=== PATIENT | female | born 1955 | race Hispanic/Latino ===

== ENCOUNTER 2018-07-20 19:42 | Emergency (ER) | payer SELFPAY ==
--- NOTE | 2018-07-20 20:58 | ER ---
Nurse's Notes [facility] Name: Dayana Brooks Age: 62 yrs Sex: Female : 1955 Arrival Date: 07/20/2018 Time: 19:46 Bed 28 Private MD: Diagnosis: Pain in right knee Presentation: 07/20 19:52 Presenting complaint: Patient states: Right knee pain for 2 months. Denies trauma. Seen aj by PCP in [place] and told she had no cartilage left, given Diclofenac. Transition of care: patient was not received from another setting of care. Onset of symptoms was April 2018. Risk Assessment: Do you want to hurt yourself or someone else? Patient reports no desire to harm self or others. Initial Sepsis Screen: Does the patient meet any 2 criteria? No. Patient's initial sepsis screen is negative. Does the patient have a suspected source of infection? No. Patient's initial sepsis screen is negative. Care prior to arrival: None. 19:52 Method Of Arrival: Wheelchair aj 19:52 Acuity: ADRIANA 4 aj Triage Assessment: 19:54 General: Appears in no apparent distress. comfortable, Behavior is calm, cooperative, aj appropriate for age. Pain: Complains of pain in right knee. Neuro: Level of Consciousness is awake, alert, obeys commands, Oriented to person, place, time, situation, Appropriate for age. Respiratory: Airway is patent Respiratory effort is even, unlabored, Respiratory pattern is regular, symmetrical. Derm: Skin is intact, is healthy with good turgor, Skin is pink, warm \T\ dry. normal. Musculoskeletal: Reports pain in right knee. Historical: - Allergies: 19:54 No Known Allergies; aj - Home Meds: 19:54 diclofenac oral oral [Active]; Glyburide Oral [Active]; Captopril Oral [Active]; aj pravastatin oral oral [Active]; - PMHx: 19:54 Diabetes - NIDDM; Hypertension; Hyperlipidemia; aj - PSHx: 19:54 None; aj - Immunization history:: Adult Immunizations up to date. - Social history:: Smoking status: Patient/guardian denies using tobacco. - Ebola Screening: : Patient negative for fever greater than or equal to 101.5 degrees Fahrenheit, and additional compatible Ebola Virus Disease symptoms Patient denies exposure to infectious person Patient denies travel to an Ebola-affected area in the 21 days before illness onset No symptoms or risks identified at this time. Screenin:43 Abuse screen: Denies threats or abuse. Denies injuries from another. Nutritional mg2 screening: No deficits noted. Tuberculosis screening: No symptoms or risk factors identified. Fall Risk Ambulatory Aid- None/Bed Rest/Nurse Assist (0 pts). Assessment: 21:38 General: Appears uncomfortable, Behavior is cooperative, crying. Pain: Complains of mg2 pain in right leg and right knee. Neuro: Level of Consciousness is awake, alert, obeys commands, Oriented to person, place, time, situation. Cardiovascular: Capillary refill < 3 seconds Patient's skin is warm and dry. Respiratory: No deficits noted. GI: No signs and/or symptoms were reported involving the gastrointestinal system. : No deficits noted. EENT: No signs and/or symptoms were reported regarding the EENT system. Derm: Skin is intact, Skin is pink, warm \T\ dry. normal. Musculoskeletal: Circulation, motion, and sensation intact. Swelling present in right knee. Vital Signs: 19:54 BP 162 / 67; Pulse 79; Resp 16; Temp 98.3; Pulse Ox 97% on R/A; Weight 64.41 kg; Height aj 5 ft. 0 in. (152.40 cm); 21:41 BP 158 / 80; Pulse 89; Resp 18; Pulse Ox 100% on R/A; Pain 6/10; mg2 19:54 Body Mass Index 27.73 (64.41 kg, 152.40 cm) aj ED Course: 19:46 Patient arrived in ED. ds1 19:53 Triage completed. aj 19:54 Arm band placed on left wrist. Patient placed in waiting room, Patient notified of wait aj time. 20:24 [facility]C [facility] snw 20:24 Samm Mars MD is Attending Physician. snw 20:43 Henrry Childs, DANIELLE is Primary Nurse. mg2 20:43 Patient has correct armband on for positive identification. Side rails up X 1. Door mg2 closed. 20:55 Knee Right 3 View XRAY In Process Unspecified. EDMS 20:57 Eddie Bolanos MD is Referral Physician. snw 21:39 No provider procedures requiring assistance completed. Patient did not have IV access mg2 during this emergency room visit. Knee immobilizer applied on right knee. Administered Medications: 21:20 Drug: fentaNYL (PF) 50 mcg Route: IM; Site: left gluteus; mg2 21:40 Follow up: Response: No adverse reaction; Medication administered at discharge. mg2 Outcome: 20:58 Discharge ordered by MD. damon 21:41 Discharged to home via wheelchair, with family. mg2 21:41 Condition: good 21:41 Discharge instructions given to patient, family, Instructed on discharge instructions, follow up and referral plans. medication usage, Demonstrated understanding of instructions, follow-up care, medications, Prescriptions given X 1. 21:42 Patient left the ED. mg2 Signatures: Dispatcher [employer] EDNatalia Marie, RN RN Korin Parker, GUIDE SETTER-C GUIDE SETTER-Mone Ann ds1 Henrry Chilsd RN RN mg2
--- NOTE | 2018-07-20 20:58 | EDPHYS ---
Physician Documentation [facility] Name: Dayana Brooks Age: 62 yrs Sex: Female : 1955 Arrival Date: 07/20/2018 Time: 19:46 Bed 28 Private MD: ED Physician Samm Mars HPI: 07/20 20:55 This 62 yrs old Female presents to ER via Wheelchair with complaints of Knee snw Pain. 20:55 Onset: The symptoms/episode began/occurred gradually, and became worse just prior to snw arrival, and became persistent. The patient has experienced similar episodes in the past. The patient has been recently seen by a physician: in [place]. Rx diclofenac, told knee was bone on bone. Pt drove in from [place] today. Upon walking post arriving home pt could not tolerate the pain. Historical: - Allergies: 19:54 No Known Allergies; aj - Home Meds: 19:54 diclofenac oral oral [Active]; Glyburide Oral [Active]; Captopril Oral [Active]; aj pravastatin oral oral [Active]; - PMHx: 19:54 Diabetes - NIDDM; Hypertension; Hyperlipidemia; aj - PSHx: 19:54 None; aj - Immunization history:: Adult Immunizations up to date. - Social history:: Smoking status: Patient/guardian denies using tobacco. - Ebola Screening: : Patient negative for fever greater than or equal to 101.5 degrees Fahrenheit, and additional compatible Ebola Virus Disease symptoms Patient denies exposure to infectious person Patient denies travel to an Ebola-affected area in the 21 days before illness onset No symptoms or risks identified at this time. ROS: 20:55 Constitutional: Negative for fever, chills, and weight loss, Eyes: Negative for injury, snw pain, redness, and discharge, ENT: Negative for injury, pain, and discharge, Neck: Negative for injury, pain, and swelling, Cardiovascular: Negative for chest pain, palpitations, and edema, Respiratory: Negative for shortness of breath, cough, wheezing, and pleuritic chest pain, Abdomen/GI: Negative for abdominal pain, nausea, vomiting, diarrhea, and constipation, Back: Negative for injury and pain, : Negative for injury, bleeding, discharge, and swelling, Skin: Negative for injury, rash, and discoloration, Neuro: Negative for headache, weakness, numbness, tingling, and seizure. 20:55 MS/extremity: Positive for decreased range of motion, pain, of the right knee. Exam: 20:54 Head/Face: Normocephalic, atraumatic. Eyes: Pupils equal round and reactive to light, snw extra-ocular motions intact. Lids and lashes normal. Conjunctiva and sclera are non-icteric and not injected. Cornea within normal limits. Periorbital areas with no swelling, redness, or edema. ENT: Nares patent. No nasal discharge, no septal abnormalities noted. Tympanic membranes are normal and external auditory canals are clear. Oropharynx with no redness, swelling, or masses, exudates, or evidence of obstruction, uvula midline. Mucous membranes moist. Neck: Trachea midline, no thyromegaly or masses palpated, and no cervical lymphadenopathy. Supple, full range of motion without nuchal rigidity, or vertebral point tenderness. No Meningismus. Chest/axilla: Normal chest wall appearance and motion. Nontender with no deformity. No lesions are appreciated. Cardiovascular: Regular rate and rhythm with a normal S1 and S2. No gallops, murmurs, or rubs. Normal PMI, no JVD. No pulse deficits. Respiratory: Lungs have equal breath sounds bilaterally, clear to auscultation and percussion. No rales, rhonchi or wheezes noted. No increased work of breathing, no retractions or nasal flaring. Abdomen/GI: Soft, non-tender, with normal bowel sounds. No distension or tympany. No guarding or rebound. No evidence of tenderness throughout. Back: No spinal tenderness. No costovertebral tenderness. Full range of motion. Skin: Warm, dry with normal turgor. Normal color with no rashes, no lesions, and no evidence of cellulitis. Neuro: Awake and alert, GCS 15, oriented to person, place, time, and situation. Cranial nerves II-XII grossly intact. Motor strength 5/5 in all extremities. Sensory grossly intact. Cerebellar exam normal. Normal gait. Psych: Awake, alert, with orientation to person, place and time. Behavior, mood, and affect are within normal limits. 20:54 Constitutional: The patient appears alert, anxious, restless, uncomfortable. 20:54 Musculoskeletal/extremity: Extremities: grossly normal except: noted in the right knee: decreased ROM, pain, ROM: limited active range of motion due to pain, limited passive range of motion due to pain, Circulation is intact in all extremities. Sensation intact. Compartment Syndrome exam of affected extremity: is normal. Vital Signs: 19:54 BP 162 / 67; Pulse 79; Resp 16; Temp 98.3; Pulse Ox 97% on R/A; Weight 64.41 kg; Height aj 5 ft. 0 in. (152.40 cm); 21:41 BP 158 / 80; Pulse 89; Resp 18; Pulse Ox 100% on R/A; Pain 6/10; mg2 19:54 Body Mass Index 27.73 (64.41 kg, 152.40 cm) aj MDM: 20:28 Patient medically screened. snw 20:59 Data reviewed: vital signs, nurses notes. Data interpreted: Pulse oximetry: on room air snw is 97 %. Interpretation: normal. Counseling: I had a detailed discussion with the patient and/or guardian regarding: the historical points, exam findings, and any diagnostic results supporting the discharge/admit diagnosis, radiology results, the need for outpatient follow up, to return to the emergency department if symptoms worsen or persist or if there are any questions or concerns that arise at home. Special discussion: I have referred the patient to see his PCP for further evaluation of high blood pressure. Based on the history and exam findings, there is no indication for further emergent testing or inpatient evaluation. I discussed with the patient/guardian the need to see the orthopedic surgeon for further evaluation of the symptoms. I discussed with the patient/guardian the need to see the primary care provider for further evaluation of the symptoms. 07/20 19:55 Order name: Knee Right 3 View XRAY; Complete Time: 21:21 07/20 20:54 Order name: Knee Immobilizer; Complete Time: 21:37 snw Administered Medications: 21:20 Drug: fentaNYL (PF) 50 mcg Route: IM; Site: left gluteus; mg2 21:40 Follow up: Response: No adverse reaction; Medication administered at discharge. mg2 Disposition: 07/21 06:50 Co-signature as Attending Physician, Samm Mars MD I agree with the assessment and ps1 plan of care. Disposition: 07/20/18 20:58 Discharged to Home. Impression: Pain in right knee. - Condition is Stable. - Discharge Instructions: Joint Pain, Cast or Splint Care, Adult, How to Use a Knee Brace, Musculoskeletal Pain, Knee Pain. - Prescriptions for orphenadrine citrate 100 mg Oral Tablet Sustained Release - take 1 tablet by ORAL route 2 times per day As needed; 20 tablet. - Medication Reconciliation Form, Thank You Letter, Antibiotic Education, Prescription Opioid Use form. - Follow up: Private Physician; When: As needed; Reason: Recheck today's complaints, Re-evaluation by your physician. Follow up: Eddie Bolanos MD; When: 2 - 3 days; Reason: Recheck today's complaints, Continuance of care. - Notes: please continue diclofenac Signatures: Dispatcher [employer] EDNatalia Marie, RN RN Korin Parker, DIETITIAN RESEARCH-C DIETITIAN RESEARCH-Csnw Samm Mars MD MD ps1 Gardose, Michele RN RN mg2 Corrections: (The following items were deleted from the chart) 07/20 21:42 20:58 07/20/2018 20:58 Discharged to Home. Impression: Pain in right knee. Condition is mg2 Stable. Forms are Medication Reconciliation Form, Thank You Letter, Antibiotic Education, Prescription Opioid Use. Follow up: Private Physician; When: As needed; Reason: Recheck today's complaints, Re-evaluation by your physician. Follow up: Dr. Eddie Bolanos; When: 2 - 3 days; Reason: Recheck today's complaints, Continuance of care. snw
[2018-07-20] MEDS ORDERED: FENTANYL CITR 100 MCG/2 ML ONE (21:09)
--- NOTE | 2018-07-20 21:20 | RAD REPORT ---
EXAM DESCRIPTION: RAD - Knee Right 3 View - 07/20/2018 8:55 pm CLINICAL HISTORY: Nontraumatic knee pain COMPARISON: None. FINDINGS: No fracture, dislocation or periosteal reaction.Trace amount of joint fluid is present. Pa tient has mild narrowing of the medial compartment. Small medial compartment marginal spurs are prese nt. There is spurring along the tibial spine. No foreign body or other soft tissue abnormality. Madden la marginal spurring noted. IMPRESSION: Degenerative knee changes as detailed. No acute bone or joint finding. Clinical concerns for internal derangement or occult bony injury could be further assessed with MR im aging.
== END 2018-07-20 21:42 | disposition home or self-care (01) ==
LOC: ER 19:42
DX: M25.561 Pain in right knee (principal); E11.9 Type 2 diabetes mellitus without complications; Z79.84 Long term (current) use of oral hypoglycemic drugs; I10 Essential (primary) hypertension; E78.5 Hyperlipidemia, unspecified
CPT/HCPCS: 96372; 99284; J3010

== ENCOUNTER 2021-10-05 22:05 | Emergency (ER) | payer OTHER, SELFPAY ==
[2021-10-05 23:14] LABS: Absolute Lymphocytes (CBC) 1.7 K/uL (0.7-4.9); Basophils % 0.6 % (0-1.3); Hematocrit 42.7 % (36.0-45.0); Lymphocytes % 27.9 % (15.3-44.8); MPV 8.8 fL (7.6-11.3); RBC Red Blood Cell Count 4.89 M/uL (3.86-4.86)
[2021-10-05 23:17] LABS: Protime INR 0.93
[2021-10-05 23:40] LABS: ALT/SGPT 43 U/L (12-78); AST/SGOT 25 U/L (15-37); Albumin 4.3 g/dL (3.4-5.0); Alkaline Phosphatase 109 U/L (45-117); BUN Blood Urea Nitrogen 15 mg/dL (7-18); Bicarbonate 28 mmol/L (21-32); Bilirubin Direct < 0.1 mg/dL (0-0.2); Bilirubin Total 0.2 mg/dL (0.2-1.0); Glucose Level 179 mg/dL (74-106); Magnesium 2.4 mg/dL (1.8-2.4); Potassium 4.3 mmol/L (3.5-5.1); Protein, Total 8.7 g/dL (6.4-8.2); Sodium Level 143 mmol/L (136-145); Troponin (Emerg Dept Use Only) 0.03 ng/mL (0.0-0.045)
[2021-10-06 00:23] LABS: Urine Blood Negative (Negative); Urine Glucose Negative (Negative); Urine Protein Negative (Negative)
--- NOTE | 2021-10-06 00:39 | EDPHYS ---
Physician Documentation [facility] Name: Dayana Brooks Age: 66 yrs Sex: Female : 1955 Arrival Date: 10/05/2021 Time: 22:21 Bed 11 Private MD: ED Physician Kp Ng HPI: 10/05 22:45 This 66 yrs old Female presents to ER via EMS with complaints of High Blood cp Pressure. 22:45 The patient has elevated blood pressure and discovered this at home, with a home device.cp 22:45 Onset: The symptoms/episode began/occurred today. Associated signs and symptoms: cp Pertinent positives: headache. Historical: - Home Meds: 22:00 Captopril Oral [Active]; pravastatin Oral [Active]; Glyburide Oral [Active]; mr2 - PMHx: 22:00 Diabetes - NIDDM; Hyperlipidemia; Hypertension; mr2 - Immunization history:: Adult Immunizations up to date. - Social history:: Smoking status: Patient denies any tobacco usage or history of. ROS: 22:50 Constitutional: Negative for body aches, chills, fever, poor PO intake. cp 22:50 Eyes: Negative for injury, pain, redness, and discharge. cp 22:50 Cardiovascular: Negative for chest pain, edema, palpitations. 22:50 Respiratory: Negative for cough, shortness of breath, wheezing. 22:50 Abdomen/GI: Negative for abdominal pain, nausea, vomiting, and diarrhea. 22:50 : Negative for urinary symptoms. 22:50 Neuro: Positive for headache, Negative for altered mental status, dizziness, loss of consciousness, syncope, weakness. Exam: 22:55 Constitutional: The patient appears in no acute distress, alert, awake, cp non-diaphoretic, non-toxic, well developed, well nourished, obese. 22:55 Head/Face: Normocephalic, atraumatic. cp 22:55 Eyes: Periorbital structures: appear normal, Pupils: equal, round, and reactive to light and accomodation, Extraocular movements: intact throughout, Conjunctiva: normal, no exudate, no injection, Sclera: no appreciated abnormality, Lids and lashes: appear normal, bilaterally. 22:55 ENT: External ear(s): are unremarkable, Nose: is normal, Mouth: Lips: moist, Oral mucosa: moist, Posterior pharynx: Airway: no evidence of obstruction, patent. 22:55 Neck: ROM/movement: is normal, is supple, without pain, no range of motions limitations, no nuchal rigidity. 22:55 Chest/axilla: Inspection: normal. 22:55 Cardiovascular: Rate: normal, Rhythm: regular, Edema: is not appreciated, JVD: is not appreciated. 22:55 Respiratory: the patient does not display signs of respiratory distress, Respirations: normal, no use of accessory muscles, no retractions, labored breathing, is not present, Breath sounds: are clear throughout, no decreased breath sounds, no stridor, no wheezing. 22:55 Abdomen/GI: Exam negative for discomfort, distension, guarding, Inspection: abdomen appears normal. 22:55 Back: pain, is absent, ROM is normal. 22:55 Neuro: Orientation: to person, place \T\ time. Mentation: is normal, Motor: moves all fours, strength is normal, Sensation: is normal. 23:37 ECG was reviewed by the Attending Physician. cp Vital Signs: 22:30 BP 182 / 96; Pulse 94; Resp 18; Temp 98.5; Pulse Ox 97% on R/A; Weight 74.84 kg; Height mr2 5 ft. 0 in. (152.40 cm); Pain 3/10; 10/06 00:15 BP 149 / 88; Pulse 88; Resp 18; Temp 98.4; Pulse Ox 98% on R/A; mr2 00:46 BP 138 / 84; Pulse 87; Resp 17; Temp 98.5; Pulse Ox 98% on R/A; mr2 10/05 22:30 Body Mass Index 32.22 (74.84 kg, 152.40 cm) mr2 MDM: 10/05 22:37 Patient medically screened. [facility] 10/06 00:39 Data reviewed: vital signs, nurses notes, lab test result(s), EKG, radiologic studies, cp CT scan, plain films. 00:39 Test interpretation: by ED physician or midlevel provider: ECG, plain radiologic cp studies. Counseling: I had a detailed discussion with the patient and/or guardian regarding: the historical points, exam findings, and any diagnostic results supporting the discharge/admit diagnosis, the presence of at least one elevated blood pressure reading (>120/80) during this emergency department visit, lab results, radiology results, the need for outpatient follow up, a family practitioner, an assistant program manager, to return to the emergency department if symptoms worsen or persist or if there are any questions or concerns that arise at home. Response to treatment: the patient's symptoms have markedly improved after treatment, Headache resolved and blood pressure markedly improved. Will discharge to home for continued monitoring. 10/05 22:44 Order name: Basic Metabolic Panel; Complete Time: 23:52 cp 10/05 22:44 Order name: CBC with Diff; Complete Time: 23:52 cp 10/05 22:44 Order name: LFT's; Complete Time: 23:52 cp 10/05 22:44 Order name: Magnesium; Complete Time: 23:52 cp 10/05 22:44 Order name: PT-INR; Complete Time: 23:52 cp 10/05 22:44 Order name: Troponin (emerg Dept Use Only); Complete Time: 23:52 cp 10/05 22:44 Order name: XRAY Chest (1 view) 10/05 22:44 Order name: EKG; Complete Time: 22:45 cp 10/05 22:44 Order name: CT Head Brain wo Cont cp 10/05 23:57 Order name: Urine Microscopic Only cp 10/06 00:22 Order name: Urine Dipstick-Ancillary; Complete Time: 00:39 EDMS 10/06 00:46 Order name: Urine Culture [facility] 10/05 22:44 Order name: Cardiac monitoring; Complete Time: 23:33 cp 10/05 22:44 Order name: EKG - Nurse/Tech; Complete Time: 23:33 cp 10/05 22:44 Order name: IV Saline Lock; Complete Time: 23:33 cp 10/05 22:44 Order name: Labs collected and sent; Complete Time: 23:33 cp 10/05 22:44 Order name: O2 Per Protocol; Complete Time: 23:33 cp 10/05 22:44 Order name: O2 Sat Monitoring; Complete Time: 23:33 cp 10/05 23:57 Order name: Urine Dipstick-Ancillary (obtain specimen); Complete Time: 00:26 cp EC/04 23:37 Rate is 81 beats/min. Rhythm is regular. MS interval is normal. QRS interval is normal. cp QT interval is normal. T waves are Inverted in leads I, aVL, V6. Interpreted by me. Reviewed by me. Administered Medications: 00:15 Drug: NS 0.9% 500 ml Route: IV; Rate: bolus; Site: left antecubital; mr2 10/06 00:41 Not Given (Hemodynamic Parameters): cloNIDine 0.1 mg PO once mr2 Disposition: 11:23 Co-signature as Attending Physician, Kp Ng MD I agree with the assessment and josef plan of care. Disposition Summary: 10/06/21 00:39 Discharge Ordered Location: Home cp Problem: new cp Symptoms: have improved cp Condition: Stable cp Diagnosis - Hypertensive heart disease without heart failure cp - Diabetes mellitus due to underlying condition with hyperglycemia cp Followup: cp - With: Private Physician - When: 1 - 2 days - Reason: Recheck today's complaints Discharge Instructions: - Discharge Summary Sheet cp - Hyperglycemia cp - Hypertension, Adult cp - Form - Daily Diabetes Record cp - Blood Glucose Monitoring, Adult cp - Diabetes Mellitus and Nutrition, Adult cp - How to Take Your Blood Pressure, [id number] cp Forms: - Medication Reconciliation Form cp - Thank You Letter cp - Antibiotic Education cp - Prescription Opioid Use cp Signatures: Dispatcher [employer] Kp Payan MD MD cha Page, Corey PA PA cp Shashi Saini, RN RN mr2
--- NOTE | 2021-10-06 00:39 | ER ---
Nurse's Notes [facility] Name: Dayana Brooks Age: 66 yrs Sex: Female : 1955 Arrival Date: 10/05/2021 Time: 22:21 Bed 11 Private MD: Diagnosis: Hypertensive heart disease without heart failure;Diabetes mellitus due to underlying condition with hyperglycemia Presentation: 10/05 22:23 Chief complaint: Patient states: pt co headache after elevated bp for several hrs. mr2 Denies cp, dizziness, vision changes, AMS, nausea, photophobia. Rpts bp 200/98. Has not taken any additional bp meds. Coronavirus screen: Vaccine status: Patient reports receiving the 2nd dose of the covid vaccine. Ebola Screen: No symptoms or risks identified at this time. Risk Assessment: Do you want to hurt yourself or someone else? Patient reports no desire to harm self or others. Onset of symptoms was October 05, 2021. 22:23 Method Of Arrival: EMS: [facility] mr2 22:23 Acuity: ADRIANA 3 mr2 10/06 00:51 Initial Sepsis Screen: Does the patient meet any 2 criteria? No. Patient's initial mr2 sepsis screen is negative. Does the patient have a suspected source of infection? No. Patient's initial sepsis screen is negative. Triage Assessment: 10/05 22:23 General: Appears in no apparent distress. Pain:. mr2 22:30 General: Behavior is calm, cooperative. mr2 Historical: - Home Meds: 22:00 Captopril Oral [Active]; pravastatin Oral [Active]; Glyburide Oral [Active]; mr2 - PMHx: 22:00 Diabetes - NIDDM; Hyperlipidemia; Hypertension; mr2 - Immunization history:: Adult Immunizations up to date. - Social history:: Smoking status: Patient denies any tobacco usage or history of. Screenin:10 Abuse screen: Denies threats or abuse. Denies injuries from another. Nutritional mr2 screening: No deficits noted. Tuberculosis screening: No symptoms or risk factors identified. Fall Risk IV access (20 points). Assessment: 21:49 General: Appears in no apparent distress. comfortable. Pain: Complains of pain in top mr2 of head Pain does not radiate. Pain currently is 3 out of 10 on a pain scale. Cardiovascular: Reports. Vital Signs: 22:30 BP 182 / 96; Pulse 94; Resp 18; Temp 98.5; Pulse Ox 97% on R/A; Weight 74.84 kg; Height mr2 5 ft. 0 in. (152.40 cm); Pain 3/10; 10/06 00:15 BP 149 / 88; Pulse 88; Resp 18; Temp 98.4; Pulse Ox 98% on R/A; mr2 00:46 BP 138 / 84; Pulse 87; Resp 17; Temp 98.5; Pulse Ox 98% on R/A; mr2 10/05 22:30 Body Mass Index 32.22 (74.84 kg, 152.40 cm) mr2 ED Course: 10/05 22:10 Call light in reach. Side rails up X2. Adult w/ patient. mr2 22:10 No provider procedures requiring assistance completed. Inserted saline lock: 18 gauge mr2 in left antecubital area, using aseptic technique. 22:21 Patient arrived in ED. bb 22:22 Shashi Saini, DANIELLE is Primary Nurse. mr2 22:24 Kp Verdin PA is PHCP. cp 22:24 Kp Ng MD is Attending Physician. cp 22:27 Triage completed. mr2 22:30 Arm band placed on. mr2 22:50 Basic Metabolic Panel Sent. mr2 22:50 CBC with Diff Sent. mr2 22:50 LFT's Sent. mr2 22:50 Magnesium Sent. mr2 22:50 PT-INR Sent. mr2 22:50 Troponin (emerg Dept Use Only) Sent. mr2 23:06 XRAY Chest (1 view) In Process Unspecified. EDMS 23:39 CT Head Brain wo Cont In Process Unspecified. EDMS 10/06 00:51 IV discontinued. mr2 Administered Medications: 10/05 00:15 Drug: NS 0.9% 500 ml Route: IV; Rate: bolus; Site: left antecubital; mr2 10/06 00:41 Not Given (Hemodynamic Parameters): cloNIDine 0.1 mg PO once mr2 Outcome: 00:39 Discharge ordered by MD. cp 00:50 Discharged to home ambulatory, with family. mr2 00:50 Condition: stable 00:50 Discharge instructions given to patient, family, Instructed on follow up and referral plans. Demonstrated understanding of follow-up care. 00:51 Patient left the ED. mr2 Signatures: Dispatcher [employer] Jody Tang RN RN bb Page, Corey, PA PA cp Reynard, Mike, RN RN mr2
[2021-10-06 00:44] LABS: Urine Bacteria <20 /HPF (<20); Urine RBC <5 /HPF (NONE SEEN)
[2021-10-06 01:20] VITALS: O2SAT 98
[2021-10-06 01:22] VITALS: BP 138/84; TEMP 98.5
--- NOTE | 2021-10-06 08:28 | RAD REPORT ---
EXAM DESCRIPTION: RAD - Chest Single View - 10/05/2021 11:06 pm CLINICAL HISTORY: hypertension Chest pain. COMPARISON: No comparisons FINDINGS: Portable technique limits examination quality. The lungs are grossly clear. Postsurgical changes of a CABG noted. Cardiac size is within normal limi ts. No displaced fractures. IMPRESSION: No acute intrathoracic process suspected.
--- NOTE | 2021-10-06 08:40 | RAD REPORT ---
EXAM DESCRIPTION: CT Head/Brain Without Contrast CLINICAL HISTORY: Hypertension; Headache COMPARISON: None. TECHNIQUE: Head/brain axial images acquired without contrast. Coronal and sagittal reformats created . Exam performed according to departmental dose-optimization program which includes automated exposur e control, adjustment of mA and/or kV according to patient size, and/or use of iterative reconstructi on technique. FINDINGS: No midline shift, mass effect, intracranial hemorrhage, or hydrocephalus. Brain parenchyma unremarkable. 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 Paranasal sinuses clear. Mastoid air cells clear. No skull fracture or significant skull lesion. IMPRESSION: No CT evidence of acute intracranial abnormality. Electronically signed by: Wilbur Reaves MD 10/05/2021 11:51 PM CDT Due to temporary technical issues with the PACS/Fluency reporting system, reports are being signed by the in house radiologist without review as a courtesy to ensure prompt reporting. The interpreting r adiologist is fully responsible for the content of the report.
--- OUTSIDE RECORDS SUMMARY | 2021-10-14 12:02 | XMS REPORT | Continuity of Care Document ---
:1955 Author Organization [facility] t Address [address] [place] [address] [address] [place] [address] Care Team Providers Name Role Phone EDIONWE Attending Clinician Unavailable EDIONWE Admitting Clinician Unavailable Payers Payer Name Policy Type Policy Number Effective Date Expiration Date [place] [facility] [place] PENDING 2020 2020 PENDING 00:00:00 00:00:00 Problems This patient has no known problems. Allergies, Adverse Reactions, Alerts Allergy Allergy Status Severity Reaction(s) Onset Inactive Treating Comm ents Source Name Type Date Date Clinician NO KNOWN Drug Active [facility] ALLERGIE [facility] Medications This patient has no known medications. Procedures This patient has no known procedures. Encounters Start End Encounter Admission Attending Care Care Encounter Source Date/Time Date/Time Type Type Clinicians Facility Department ID 2020-01-16 2020-01-18 Outpatient X CAITLIN [facility] [id number] [facility] 19:34:09 17:18:00 [facility] Results This patient has no known results.
== END 2021-10-06 00:51 | disposition home or self-care (01) ==
LOC: ER 22:05
DX: I11.9 Hypertensive heart disease without heart failure (principal); E11.65 Type 2 diabetes mellitus with hyperglycemia; E78.5 Hyperlipidemia, unspecified
CPT/HCPCS: 36415; 70450; 71045; 80048; 80076; 81003; 81015; 83735; 84484; 85025; 85610; 87086; 87088; 99284

== ENCOUNTER 2023-12-13 23:35 | Inpatient (IN) | payer OTHER ==
[2023-12-13] MEDS ORDERED: METHYLPREDNISOLONE 125 MG INJ ONE (23:42)
[2023-12-13] MEDS ORDERED: ONDANSETRON 4 MG/2 ML VIAL ONE (23:42)
[2023-12-13] MEDS ORDERED: LEVALBUTEROL 1.25 MG/3 ML NEB ONE (23:43)
--- OUTSIDE RECORDS SUMMARY | 2023-12-13 23:48 | XMS REPORT | Continuity of Care Document ---
Author Name Unknown Address [address] [place] [address] [facility] Address [address] [place] [address] Care Team Providers Care Rice Field Worker Name Role Phone PCP, PATIENT DOES NOT HAVE A Primary Care Physic ivelisse Unavailable Eddie Urbano MD Attending Clinician EDDIE URBANO Attending Clinician Unavailable HUMBERTO TUCKER Attending Clinician Unavailable EDDIE URBANO Admitting Clinician Unavailable HUMBERTO TUCKER Admitting Clinician Unavailable Payers Payer Name Policy Type Policy Number Effective Date Expirati on Date Source MEDICAID ALIEN PENDING PENDING 2020 00:00:00 2020 00:00:00 Problems Condition Name Condition Details Condition Category Status Onset Date Resolution Date Last Treatment Date Treating Clinician Comments Source 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 Disease Active -16 00:00: 00 [facility] Essential hypertensi on Essential hypertensi on Disease Active 2-16 00:00: 00 [facility] Dyslipidem ia Dyslipidem ia Disease Active -16 00:00: 00 [facility] S/P CABG (coronary artery bypass graft) S/P CABG (coronary artery bypass graft) Disease Active 2-16 00:00: 00 [facility] Atypical chest pain Atypical chest pain Disease Active -15 00:00: 00 [facility] Allergies, Adverse Reactions, Alerts Allergy Name Allergy Type Status Severity Reaction(s) Onset Date Inactive Date Treating Clinician Comments Source NO KNOWN ALLERGIE S Drug Class Active [facility] Social History Social Habit Start Date Stop Date Quantity Comments Source History of tobacco use Current smoker [facility] Exposure to SARS-CoV-2 (event) 2022-10-24 00:00:00 2022-11-03 15:51:[address] [facility] Tobacco use and exposure 2020-01-16 00:00:00 2020-01-16 00:00:00 Smokeless tobacco non-user [facility] Sex Assigned At 1955 00:00:00 1955 00:00:00 [facility] Smoking Status Start Date Stop Date Source Ex-smoker 2020-01-16 00:00:00 2020-01-16 00[facility]00[facility]00 [facility] Medications Ordered Medication Name Filled Medication Name Start Date Stop Date Current Medication? Ordering Clinician Indication Dosage Frequency Signature (SIG) Comments Components Source metoprolol tartrate 25 mg tablet 01-18 17:19: 17 Yes 25mg Take 25 mg by mouth 2 (two) times daily. [facility] glyBURIDE 5 mg tablet 01-18 17:19: 17 Yes 5mg Take 5 mg by mouth 2 (two) times daily with meals. [facility] atorvastati n 40 mg tablet 01-18 17:19: 17 Yes 40mg Take 40 mg by mouth at bedtime. [facility] Vital Signs Vital Name Observation Time Observation Value Comments S jamilahfaye Systolic blood pressure 2022-11-03 20:12:00 145 mm[Hg] [facility] Diastolic blood pressure 2022-11-03 20:12:00 94 mm[Hg] [facility] Heart rate 2022-11-03 20:12:00 70 /min [facility] Body temperature 2022-11-03 20:12:[address] [facility] Respiratory rate 2022-11-03 20:12:00 19 /min [facility] Body height 2022-11-03 20:12:00 160 cm [facility] Body weight 2022-11-03 20:12:00 68.04 kg [facility] BMI 2022-11-03 20:12:00 26.57 kg/m2 [facility] Oxygen saturation in Arterial blood by Pulse oximetry 2022-11-03 20:12:00 99 /min [facility] Procedures Procedure Date / Time Performed Performing Clinicia n Source EKG-12 LEAD 2022-11-03 21:41:50 Eddie Urbano [facility] XR CHEST 2 VW 2022-11-03 21:18:05 Eddie Urbano [facility] CONSENT/REFUSAL FOR DIAGNOSIS AND TREATMENT 2022-11-03 20:04:05 Doctor Unassigned, [place] [facility] Encounters Start Date/Time End Date/Time Encounter Type Admission Type Attending [facility] Care Facility Care Department Encounter ID Source 2022-11-03 14:15:00 2022-11-03 15:52:00 Emergency Eddie Urbano [facility] [id number] [facility] 2022-11-03 14:15:00 2022-11-03 15:52:00 Emergency X EDDIE URBANO [facility] ERT [id number] [facility] 2020-01-16 19:34:09 2020-01-18 17:18:00 Outpatient X HUMBERTO TUCKER [facility] MARSHA [id number] [facility]
[2023-12-14 00:12] LABS: Absolute Lymphocytes (CBC) 3.7 K/uL (0.7-4.9); Hematocrit 43.4 % (36.0-45.0); Lymphocytes % 29.4 % (15.3-44.8); MCV 86.4 fL (80-100); MPV 8.9 fL (7.6-11.3); Platelets 312 thou/uL (152-406); RBC Red Blood Cell Count 5.03 M/uL (3.86-4.86)
[2023-12-14 00:19] LABS: Protime INR 1.06
[2023-12-14 00:34] LABS: ALT/SGPT 59 U/L (13-56); Albumin 3.7 g/dL (3.4-5.0); Alkaline Phosphatase 96 U/L (45-117); BUN Blood Urea Nitrogen 19 mg/dL (7-18); Bicarbonate 26 mEq/L (21-32); Bilirubin Total 0.2 mg/dL (0.2-1.0); Glomerular Filtration Rate 59 ml/min (=/>90); Glucose Level 194 mg/dL (74-106); NT PRO-BNP 751 pg/mL (<125); Protein, Total 8.3 g/dL (6.4-8.2); Sodium Level 138 mEq/L (136-145)
[2023-12-14 00:35] LABS: AST/SGOT 43 U/L (15-37); Bilirubin Direct < 0.1 mg/dL (0-0.2); Bilirubin Indirect, Calculated ND mg/dL (0.2-0.8); Potassium 3.8 mEq/L (3.5-5.1)
[2023-12-14 00:37] LABS: Troponin High Sensitivity 256.7 pg/mL (<58.9)
[2023-12-14 00:54] LABS: Arterial Blood Carboxyhemoglob 0.6 % (0-1.5); Blood Gas Oxyhemoglobin 95.1 % (94-97); Blood O2 Saturation 97.5 % (92-98.5)
[2023-12-14] MEDS ORDERED: NITROGLYCERIN 1 GM PKT TD ONE (00:57)
[2023-12-14] MEDS ORDERED: ASPIRIN 81 MG CHEWABLE TABLET ONE (00:57)
[2023-12-14] MEDS ORDERED: ALBUTEROL 2.5 MG/3 ML NEB SOL NEB PRN (01:28)
[2023-12-14] MEDS ORDERED: ONDANSETRON 4 MG/2 ML VIAL IV PRN (01:28)
[2023-12-14] MEDS ORDERED: ACETAMINOPHEN 325 MG TABLET PO PRN (01:28)
--- NOTE | 2023-12-14 01:36 | ER ---
Nurse's Notes [facility] Name: Dayana Brooks Age: 68 yrs Sex: Female : 1955 Arrival Date: 12/13/2023 Time: 23:35 Bed 19 Private MD: Diagnosis: Unspecified combined systolic (congestive) and diastolic (congestive) heart failure;Dyspnea;Subsequent non-ST elevation (NSTEMI) myocardial infarction Presentation: 12/13 23:36 Chief complaint: EMS states: SOB starting 1 hour ago; denies chest pain; pt was 90% RA km8 then dropped to low 80's; EMS placed pt on CPAP and O2 sat improved to 98%, but pt began to panic and took it off close to arrival; pt noted to be tachypneic and stated "I can't breathe"; YARIEL Duron at bedside, pt placed on non-rebreather upon arrival 15L O2. Coronavirus screen: Client denies travel out of the [place] in the last 14 days. Ebola Screen: No symptoms or risks identified at this time. Initial Sepsis Screen: Does the patient meet any 2 criteria? RR > 20 per min. HR > 90 bpm. Yes Does the patient have a suspected source of infection? No. Patient's initial sepsis screen is negative. Risk Assessment: Do you want to hurt yourself or someone else? Patient reports no desire to harm self or others. Onset of symptoms was December 13, 2023 at 22:50. 23:36 Method Of Arrival: EMS: [facility] km8 23:36 Acuity: ADRIANA 2 km8 23:36 Care prior to arrival: IV initiated. 20 GA, in the right antecubital area, Oxygen km8 administered. via CPAP or BiPAP. Triage Assessment: 23:53 General: Appears distressed, uncomfortable, Behavior is cooperative, anxious, restless. km8 Pain: Denies pain. EENT: No signs and/or symptoms were reported regarding the EENT system. Neuro: Level of Consciousness is awake, alert, obeys commands, Oriented to person, place, time, situation. Cardiovascular: Reports shortness of breath, Denies chest pain, Capillary refill < 3 seconds Patient's skin is warm and dry. Rhythm is sinus tachycardia. Respiratory: Airway is patent Respiratory effort is even, labored, Respiratory pattern is symmetrical, tachypnea. GI: Reports nausea. : No signs and/or symptoms were reported regarding the genitourinary system. Derm: No signs and/or symptoms reported regarding the dermatologic system. Skin is intact, Skin is dry, Skin is pink, warm \\T\\ dry. normal, Skin temperature is warm. Musculoskeletal: No signs and/or symptoms reported regarding the musculoskeletal system. Circulation, motion, and sensation intact. Range of motion: intact in all extremities. Historical: - Allergies: 23:53 No Known Allergies; - Home Meds: 12/14 02:23 metoprolol tartrate 25 mg Oral tablet [Active]; Plavix 75 mg Oral tablet [Active]; atorvastatin 20 mg oral tablet [Active]; - PMHx: 12/13 23:53 Diabetes - NIDDM; Hyperlipidemia; Hypertension; - PSHx: 23:53 cardiac stents (Hypertension); 12/14 02:23 Coronary artery bypass graft; - Immunization history:: Client reports receiving the 2nd dose of the Covid vaccine. - Social history:: Smoking status: Patient denies any tobacco usage or history of. Screenin/12 23:55 [facility] ED Fall Risk Assessment (Adult) History of falling in the last 3 months, 8 including since admission No falls in past 3 months (0 pts) Confusion or Disorientation No (0 pts) Intoxicated or Sedated No (0 pts) Impaired Gait No (0 pts) Mobility Assist Device Used No (0 pt) Altered Elimination No (0 pt) Score/Fall Risk Level 0 - 2 = Low Risk Oriented to surroundings, Maintained a safe environment, Educated pt \\T\\ family on fall prevention, incl call for assistance when getting out of bed, Assessed \\T\\ reinforced patient's understanding of fall precautions. Abuse screen: Denies threats or abuse. Denies injuries from another. Nutritional screening: No deficits noted. Tuberculosis screening: No symptoms or risk factors identified. Assessment: 23:55 General: see triage notes/assessment. 12/14 00:22 Reassessment: IV found on ground; IV accidentally d/c by patient when moving around. 01:23 Reassessment: Patient appears in no apparent distress at this time. Patient and/or [facility] family updated on plan of care and expected duration. Pain level reassessed. Patient is alert, oriented x 3, equal unlabored respirations, skin warm/dry/pink. Patient states symptoms have improved. General: Appears in no apparent distress. comfortable, Behavior is calm, cooperative, appropriate for age. Pain: Denies pain. Neuro: Level of Consciousness is awake, alert, obeys commands, Oriented to person, place, time, situation. Cardiovascular: Denies chest pain, Patient's skin is warm and dry. Rhythm is sinus tachycardia. Respiratory: Airway is patent Respiratory effort is even, unlabored, Respiratory pattern is regular, symmetrical, Patient placed on BiPAP:. 02:09 Reassessment: Patient appears in no apparent distress at this time. No changes from [facility] previously documented assessment. Patient and/or family updated on plan of care and expected duration. Pain level reassessed. Patient is alert, oriented x 3, equal unlabored respirations, skin warm/dry/pink. Vital Signs: 12/13 23:36 BP 159 / 126; Pulse 123; Resp 30; Pulse Ox 100% on 15 lpm Non-rebreather mask; Weight [facility] 68.04 kg (R); Height 5 ft. 3 in. (R); Pain 0/10; 12/14 00:30 BP 157 / 73; Pulse 95; Resp 22; Pulse Ox 98% on BiPAP; [facility] 01:00 BP 182 / 97; Pulse 102; Resp 22; Pulse Ox 99% on BiPAP; 8 02:00 BP 142 / 74; Pulse 86; Resp 24; Pulse Ox 96% on BiPAP; 8 12/13 23:36 Body Mass Index 26.57 (68.04 kg, 160.02 cm) [facility] 12/13 23:36 Pain Scale: Adult [facility] Olena Coma Score: 12/13 23:55 Eye Response: spontaneous(4). Motor Response: obeys commands(6). Verbal Response: [facility] oriented(5). Total: 15. ED Course: 23:36 Patient arrived in ED. km8 23:39 Aj Olea MD is Attending Physician. sp4 23:39 Kp Verdin PA is PHCP. cp 23:46 Deysi Mcbride, DANIELLE is Primary Nurse. me1 23:53 Triage completed. km8 23:53 Arm band placed on right wrist. km8 23:55 Patient has correct armband on for positive identification. Placed in gown. Bed in low km8 position. Call light in reach. Side rails up X2. Client placed on continuous cardiac and pulse oximetry monitoring. NIBP monitoring applied. budget report clerk on. Warm blanket given. 23:55 No provider procedures requiring assistance completed. Maintain EMS IV. Dressing km8 intact. Good blood return noted. Site clean \\T\\ dry. Gauge \\T\\ site: 20 gauge right AC. Oxygen administration via non-rebreather mask \\T\\ 15L/min. 23:57 Primary Nurse role handed off by Deysi Mcbride, RN [facility] 23:57 Ashley Packer, DANIELLE is Primary Nurse. [facility] 12/14 00:05 Influenza Screen (a \\T\\ B) Sent. jr12 00:05 COVID-19 SARS RT PCR Sent. jr12 00:05 Basic Metabolic Panel Sent. jr12 00:05 CBC with Diff Sent. jr12 00:05 LFT's Sent. jr12 00:05 Magnesium Sent. jr12 00:05 NT PRO-BNP Sent. jr12 00:05 PT-INR Sent. jr12 00:06 Troponin HS Sent. jr12 00:23 IV discontinued, intact, bleeding controlled, No redness/swelling at site. Pressure km8 dressing applied. 00:24 XRAY Chest (1 view) In Process Unspecified. EDMS 01:33 Shant Ariza MD is Hospitalizing Provider. cp 02:09 Provided Education on: admission process. [facility] Administered Medications: 12/13 23:49 Drug: Ondansetron IVP 4 mg IVP once; over 2 minutes Route: IVP; Site: right antecubital;[facility] 12/14 01:03 Follow up: Response: No adverse reaction; Nausea is decreased [facility] 12/13 23:50 Drug: Levalbuterol Inhalation 1.25 mg Inhalation once Route: Inhalation; [facility] 12/14 01:03 Follow up: Response: No adverse reaction [facility] 12/13 23:50 Drug: MethylPrednisoLONE IVP 125 mg IVP once Route: IVP; Site: right antecubital; [facility] 12/14 01:03 Follow up: Response: No adverse reaction [facility] 00:41 CANCELLED (Physician Discretion): [id number] mg IVP once; give over 2 minutes cp 01:02 Drug: Aspirin PO Chewable Tablet 324 mg PO once; 81 mg tablets x 4 Route: PO; km8 01:34 Follow up: Response: No adverse reaction km8 01:03 Drug: Nitroglycerin Transdermal Ointment 2 % 0.5 inches Transdermal once Route: km8 Transdermal; Site: anterior chest wall; 01:34 Follow up: Response: No adverse reaction km8 02:19 Drug: Enoxaparin Sub-Q 1 mg/kg Sub-Q once Route: Sub-Q; Site: right lower abdomen; km8 02:19 Drug: Furosemide IVP 40 mg IVP once; give over 2 minutes Route: IVP; Site: right wrist; km8 Medication: 12/13 23:55 VIS not applicable for this client. km8 Outcome: 12/14 01:35 Decision to Hospitalize by Provider. carmen 03:03 Admitted to Med/surg accompanied by tech, family with patient, via stretcher, room 224, km8 with oxygen, with chart, 03:03 Condition: good 03:03 Instructed on the need for admit, Demonstrated understanding of instructions, 03:04 Patient left the ED. km8 Signatures: Dispatcher [employer] EDMS Kp Verdin PA PA cp Potepalov, Sergey, MD MD sp4 Deysi Mcbride, DANIELLE RN ia1 [facility] Ashley Packer, DANIELLE RN km8
--- NOTE | 2023-12-14 01:36 | EDPHYS ---
Physician Documentation [facility] Name: Dayana Brooks Age: 68 yrs Sex: Female : 1955 Arrival Date: 12/13/2023 Time: 23:35 Bed 19 Private MD: ED Physician jA Olea HPI: 12/13 23:39 This 68 yrs old Female presents to ER via Unassigned with complaints of cp dyspnea . 23:40 The patient has shortness of breath at rest. Onset: The symptoms/episode began/occurred cp suddenly, tonight, started while lying down. 23:40 Duration: The symptoms are continuous, and are steadily getting worse. Associated signs cp and symptoms: Pertinent positives: diaphoresis, nausea, Pertinent negatives: chest pain, fever. Severity of symptoms: in the emergency department the symptoms are unchanged despite EMS interventions. The patient has not experienced similar symptoms in the past. Patient with reported cardiac stent placed, cardiac bypass surgery and possibly valve replacement surgery done at hospital in [place] and [place], [place]. Historical: - Allergies: 23:53 No Known Allergies; km8 - Home Meds: 12/14 02:23 metoprolol tartrate 25 mg Oral tablet [Active]; Plavix 75 mg Oral tablet [Active]; km8 atorvastatin 20 mg oral tablet [Active]; - PMHx: 12/13 23:53 Diabetes - NIDDM; Hyperlipidemia; Hypertension; km8 - PSHx: 23:53 cardiac stents (Hypertension); km8 12/14 02:23 Coronary artery bypass graft; km8 - Immunization history:: Client reports receiving the 2nd dose of the Covid vaccine. - Social history:: Smoking status: Patient denies any tobacco usage or history of. ROS: 12/13 23:45 Constitutional: Negative for body aches, chills, fever, poor PO intake, cp 23:45 Eyes: Negative for injury, pain, redness, and discharge, cp 23:45 ENT: Negative for drainage from ear(s), ear pain, sore throat, difficulty swallowing, difficulty handling secretions, 23:45 Cardiovascular: Negative for chest pain, edema, palpitations, 23:45 Respiratory: Positive for shortness of breath, at rest. Negative for cough, 23:45 Abdomen/GI: Positive for nausea, Negative for abdominal pain, vomiting, diarrhea, constipation, 23:45 Neuro: Negative for altered mental status, dizziness, headache, syncope, weakness, 23:45 All other systems are negative, Exam: 23:50 Constitutional: The patient appears alert, awake, non-toxic, well developed, well cp nourished, diaphoretic, in obvious distress, uncomfortable, 23:50 Head/Face: Normocephalic, atraumatic. cp 23:50 Eyes: Periorbital structures: appear normal, Pupils: equal, round, and reactive to cp light and accomodation, Extraocular movements: intact throughout, Conjunctiva: normal, no exudate, no injection, Sclera: no appreciated abnormality, Lids and lashes: appear normal, bilaterally, 23:50 ENT: External ear(s): are unremarkable, Nose: is normal, Mouth: Lips: moist, Oral cp mucosa: pink and intact, moist, Posterior pharynx: is normal, airway is patent, no erythema, no exudate, 23:50 Neck: ROM/movement: is normal, is supple, without pain, no range of motions limitations, no meningismus, no nuchal rigidity, 23:50 Chest/axilla: Inspection: normal, Palpation: is normal, no crepitus, no tenderness, 23:50 Cardiovascular: Rate: tachycardic, Rhythm: regular, Edema: is not appreciated, JVD: is not appreciated, 23:50 Respiratory: severe repiratory distress is noted, Respirations: labored breathing, that is severe, Breath sounds: bronchial sounds, that are severe, are heard diffusely, decreased breath sounds, that are mild, stridor, is not appreciated, 23:50 Abdomen/GI: Inspection: abdomen appears normal, Palpation: abdomen is soft and non-tender, in all quadrants, 23:50 Back: pain, is absent, ROM is normal, 23:50 Skin: no rash present. 23:50 Neuro: Orientation: to person, place \T\ time. Mentation: is normal, Cerebellar function: is grossly normal, Motor: moves all fours, strength is normal, Sensation: is normal, 23:59 ECG was reviewed by the Attending Physician. Vital Signs: 23:36 BP 159 / 126; Pulse 123; Resp 30; Pulse Ox 100% on 15 lpm Non-rebreather mask; Weight km8 68.04 kg (R); Height 5 ft. 3 in. (R); Pain 0/10; 12/14 00:30 BP 157 / 73; Pulse 95; Resp 22; Pulse Ox 98% on BiPAP; [facility] 01:00 BP 182 / 97; Pulse 102; Resp 22; Pulse Ox 99% on BiPAP; [facility] 02:00 BP 142 / 74; Pulse 86; Resp 24; Pulse Ox 96% on BiPAP; [facility] 12/13 23:36 Body Mass Index 26.57 (68.04 kg, 160.02 cm) [facility] 12/13 23:36 Pain Scale: Adult [facility] [place] Coma Score: 12/13 23:55 Eye Response: spontaneous(4). Motor Response: obeys commands(6). Verbal Response: [facility] oriented(5). Total: 15. MDM: 12/14 00:00 Differential diagnosis: CHF exacerbation, Chronic Obstructive Pulmonary Disease cp pneumonia, Pneumothorax pulmonary edema, Pulmonary Embolism Sepsis Unstable Angina. 00:20 Patient medically screened. sp4 00:58 Data reviewed: vital signs, nurses notes, lab test result(s), EKG, radiologic studies, cp plain films. Management of patient was discussed with the following: Pipefitter Helper: DR Hazel, software application tester, will consult on patient after discussion. I considered the following discharge prescriptions or medication management in the emergency department Medications were administered in the Emergency Department. See JAN. 12/13 23:41 Order name: Basic Metabolic Panel; Complete Time: 00:38 12/14 00:38 Interpretation: Normal except: GLUC 194; BUN 19; CRE 1.04; GFR 59. 12/13 23:41 Order name: CBC with Diff; Complete Time: 00:38 12/14 00:38 Interpretation: Normal except: WBC 12.40; RBC 5.03. 12/13 23:41 Order name: LFT's; Complete Time: 00:38 12/14 00:38 Interpretation: Normal except: AST 43; ALT 59; TP 8.3; GLOB 4.6; A/G 0.8. 12/13 23:41 Order name: Magnesium; Complete Time: 00:38 12/13 23:41 Order name: NT PRO-BNP; Complete Time: 00:38 12/14 00:56 Interpretation: Abnormal: NT PRO-BNP 751. 12/13 23:41 Order name: PT-INR; Complete Time: 00:38 cp 12/13 23:41 Order name: Troponin HS; Complete Time: 00:38 cp 12/14 00:46 Interpretation: Abnormal: Troponin HS 256.7. cp 12/13 23:41 Order name: COVID-19 SARS RT PCR; Complete Time: 00:55 cp 12/13 23:41 Order name: Influenza Screen (a \T\ B); Complete Time: 00:55 cp 12/14 00:00 Order name: ABG; Complete Time: 00:55 cp 12/14 00:57 Interpretation: Normal except: ABGPH 7.34; ABGPO2 118.0; ABGMETHB 1.9. cp 12/14 01:33 Order name: Urinalysis w/ reflexes [facility] 12/14 01:33 Order name: Basic Metabolic Panel [facility] 12/14 01:33 Order name: Basic Metabolic Panel [facility] 12/14 01:33 Order name: CBC with Automated Diff [facility] 12/14 01:33 Order name: CBC with Automated Diff [facility] 12/14 01:33 Order name: Troponin High Sensitivity [facility] 12/14 01:33 Order name: Troponin High Sensitivity [facility] 12/14 01:33 Order name: Troponin High Sensitivity [facility] 12/14 01:33 Order name: Troponin High Sensitivity [facility] 12/13 23:41 Order name: XRAY Chest (1 view) 12/14 00:00 Order name: BIPAP 12/13 23:41 Order name: EKG; Complete Time: 23:41 12/14 01:33 Order name: CONS Physician Consult [facility] 12/13 23:41 Order name: Cardiac monitoring; Complete Time: 23:50 cp 12/13 23:41 Order name: EKG - Nurse/Tech; Complete Time: 00:05 cp 12/13 23:41 Order name: IV Saline Lock; Complete Time: 23:50 cp 12/13 23:41 Order name: Labs collected and sent; Complete Time: 23:50 cp 12/13 23:41 Order name: O2 Per Protocol; Complete Time: 23:50 cp 12/13 23:41 Order name: O2 Sat Monitoring; Complete Time: 23:50 cp EC/12 23:59 Rate is 112 beats/min. Rhythm is regular. [place] interval is normal. QRS interval is cp normal. QT interval is normal. T waves are Inverted in lead V6. Interpreted by me. Reviewed by me. Administered Medications: 23:49 Drug: Ondansetron IVP 4 mg IVP once; over 2 minutes Route: IVP; Site: right antecubital;[facility] 12/14 01:03 Follow up: Response: No adverse reaction; Nausea is decreased [facility] 12/13 23:50 Drug: Levalbuterol Inhalation 1.25 mg Inhalation once Route: Inhalation; 12/14 01:03 Follow up: Response: No adverse reaction [facility] 12/13 23:50 Drug: MethylPrednisoLONE IVP 125 mg IVP once Route: IVP; Site: right antecubital; 12/14 01:03 Follow up: Response: No adverse reaction [facility] 00:41 CANCELLED (Physician Discretion): [id number] mg IVP once; give over 2 minutes cp 01:02 Drug: Aspirin PO Chewable Tablet 324 mg PO once; 81 mg tablets x 4 Route: PO; 8 01:34 Follow up: Response: No adverse reaction [facility] 01:03 Drug: Nitroglycerin Transdermal Ointment 2 % 0.5 inches Transdermal once Route: km8 Transdermal; Site: anterior chest wall; 01:34 Follow up: Response: No adverse reaction 02:19 Drug: Enoxaparin Sub-Q 1 mg/kg Sub-Q once Route: Sub-Q; Site: right lower abdomen; 02:19 Drug: Furosemide IVP 40 mg IVP once; give over 2 minutes Route: IVP; Site: right wrist; km8 Disposition: 12/15 01:22 Critical Care:. cp Disposition Summary: 12/14/23 01:35 Hospitalization Ordered Notes: Hospitalization Status: Inpatient Admission cp Provider: Shant Ariza cp Location: Telemetry/[facility] (Inpatient) cp Condition: Stable cp Problem: new cp Symptoms: have improved cp Bed/Room Type: Standard Room Assignment: 224(12/14/23 02:08) lg3 Diagnosis - Unspecified combined systolic (congestive) and diastolic (congestive) heart failure cp - Dyspnea cp - Subsequent non-ST elevation (NSTEMI) myocardial infarction cp Forms: - Medication Reconciliation Form cp - SBAR form cp - Leadership Thank You Letter cp Critical care time excluding procedures: :22 Critical care time: Bedside Care: 10 minutes, Consultation: 25 minutes, Family cp Intervention: 5 minutes. Total time: 40 minutes Addendum: 03:30 Co-signature as Attending Physician, Aj Olea MD I agree with the assessment s p4 and plan of care. I reviewed the patient's care provided by the Advanced Practice Provider and agree with the diagnosis and treatment plan. Signatures: Dispatcher [employer] EDMS Kp Verdin PA PA cp Ayla Bean RN RN lg3 Aj Olea MD MD sp4 Ashley Packer RN RN km8 Corrections: (The following items were deleted from the chart) 12/14 00:38 01 23:39 This 68 yrs old Female presents to ER via Unassigned with cp complaints of chest pain, dyspnea . sp4 12/14 00:41 00:23 Furosemide IVP 40 mg IVP once; give over 2 minutes ordered. cp cp 02:08 01:35 cp lg3
[2023-12-14] MEDS ORDERED: ENOXAPARIN 80 MG/0.8 ML SQ ONE (01:37)
--- NOTE | 2023-12-14 01:40 | P.HP ---
Certification for Inpatient Patient admitted to: Observation Patient will require the following post-hospital care: None Practitioner: I am a practitioner with admitting privileges, knowledge of patient current condition, hospital course, and medical plan of care. Services: Services provided to patient in accordance with Admission requirements found in Title 42 Section 412.3 of the Code of Federal Regulations Patient History Date of Service: 12/14/23 Reason for admission: Shortness of breath History of Present Illness: Pt is a 68 yo female with past medical history of Htn, CAD s/p CABG, Anxiety, DM and HLD who presents with shortness of breath. Pt is a female who can't speak Khmer. this history is from her at bedside. She started having SOB around 1045pm last night while at home. The SOB progressively worsened to the extent that pt started having ribcage pain. This made her to call the EMS. Upon EMS arrival, pt had elevated BP and they advised her to come to the ER for evaluation. On admission, lab studies show WBC 12.4, Hgb 14.4, k 3.8, Cr 1.04, AST 43, ALT 59, Alk phos 91, troponin 256 and BNP 751. ABG shows pH 7.34, pCO2 43.7 and pO2 118. Pt was volume overload and ER physician placed BIPAP. At bedside, pt is in NAD. She denies any chest pain, fever, chills, abd pain, hematuria, dysuria or weight loss but reports SOB. Her reports that they recently came back from a city close to [place] ( about 385 miles away). Allergies No Known Allergies Allergy (Unverified 07/20/18 21:46) Home medications list reviewed: Yes - Past Medical/Surgical History Has patient received pneumonia vaccine in the past: No Diabetic: No -: CAD -: Anxiety -: Htn -: DM II -: HLD -: CABG - Family History Family History: Reviewed- Non-Contributory - Social History Smoking Status: Former smoker Smoking therapy provided: No Patient receptive to therapy: No Alcohol use: No CD- Drugs: No Caffeine use: No Place of Residence: Home Review of Systems Unremarkable General: Unremarkable Eyes: Unremarkable ENT: Unremarkable Respiratory: Shortness of Breath Cardiovascular: Edema Gastrointestinal: Unremarkable Genitourinary: Unremarkable Musculoskeletal: Unremarkable Integumentary: Unremarkable Neurological: Unremarkable Lymphatics: Unremarkable Physical Examination - Vital Signs Pulse: 98 Pulse Ox (%): 98 - Physical Exam General: Alert, In no apparent distress, Oriented x3 HEENT: Atraumatic, Normocephalic Neck: Supple, 2+ carotid pulse no bruit Respiratory: Normal air movement, Diminished Cardiovascular: Normal pulses, Regular rate/rhythm, Normal S1 S2, Edema Capillary refill: <2 Seconds Gastrointestinal: Normal bowel sounds, Soft and benign, Non-distended Musculoskeletal: No clubbing Integumentary: No rashes, No breakdown Neurological: Normal speech, Normal strength at 5/5 x4 extr, Normal tone, Sensation intact Lymphatics: No axilla or inguinal lymphadenopathy - Studies Laboratory Data (last 24 hrs) 12/13/23 12/13/23 12/13/23 00:04 00:04 00:04 WBC 12.40 H Hgb 14.4 Hct 43.4 Plt Count 312 PT 11.6 INR 1.06 Sodium 138 Potassium 3.8 BUN 19 H Creatinine 1.04 H Glucose 194 H Magnesium 2.0 Total Bilirubin 0.2 AST 43 H ALT 59 H Alkaline Phosphatase 96 Microbiology Data (last 24 hrs): 12/13/23 00:04 Nasopharnyx Influenza Type A Antigen Screen - Final 12/13/23 00:04 Nasopharnyx Influenza Type B Antigen Screen - Final Assessment and Plan - Plan New onset CHF: Pt is fluid overloaded. BNP is 751. Continue lasix 40mg iv BID, strict I/O, daily weight and low salt diet. Will follow up Echo. Consulted cardiology. Troponin is 256. Pt denies any chest pain. Acute resp failure with hypoxia: Due to CHF exacerbation. Will continue lasix, BIPAP and prn duoneb. Will wean off BIPAP as tolerated. Will r/o PE. Follow up CTA chest and D-dimer. Pt recently came back from a road trip to a city near [place] (about 385 miles away) Htn: Will continue home med HLD: statin DM II: Will continue accuchek, SSI and ADA diet Anxiety: Continue prn ativan Hx of CAD: S/p CABG. Continue home med Transaminitis: AST 43, ALT 59 and Alk phos 91. Will trend LFTs. Leukocytosis: WBC is 12.4. Will follow urinalysis and CXR in order to rule out infection. DVT ppx: heparin Code: full Discharge Plan: Home Plan to discharge in: 24 Hours - Advance Directives Does patient have a Living Will: No Does patient have a Durable POA for Healthcare: No - Code Status/Comfort Care Code Status Assessed: Yes
[2023-12-14] MEDS ORDERED: D50W 25 GM/50 ML SYRINGE IV PRN (02:40)
[2023-12-14] MEDS ORDERED: GLUCAGON 1 MG/VIAL IM PRN (02:40)
[2023-12-14] MEDS ORDERED: D10W 125 ML IV PRN (03:15)
[2023-12-14 07:32] LABS: Specific Gravity > 1.030 (1.005-1.030); Urine Bilirubin NEGATIVE (Negative); Urine Blood Negative (Negative); Urine Clarity Clear (Clear); Urine Color Colorless (Yellow); Urine Glucose 4+ (Negative); Urine Protein NEGATIVE (Negative); Urine Urobilinogen Normal (Normal)
[2023-12-14 07:59] VITALS: BMI 26.5
[2023-12-14] MEDS: FUROSEMIDE 40 MG/4 ML VIAL IV SCH ×2 (08:35→16:58)
[2023-12-14] MEDS: INSULIN REGULAR (HUMAN) 100 UNIT/ML SQ SCH ×4 (08:36→20:03)
[2023-12-14] MEDS ORDERED: POTASSIUM CL SA 10 MEQ TAB PO ONE (09:00)
[2023-12-14] MEDS ORDERED: HEPARIN 5000 UNIT/ML 1 ML VIAL SQ SCH (09:00)
[2023-12-14] MEDS: ENOXAPARIN 80 MG/0.8 ML SQ SCH ×2 (10:58→20:02)
--- NOTE | 2023-12-14 13:03 | P.PN ---
Date of Service: 12/14/23 Patient seen and examined. Troponin significantly elevated indicating NSTEMI. Acute CHF, unknown EF. Repeat EKG showed T wave inversions in the lateral leads. CTA thorax result is pending. Start full dose Lovenox. ASA, lipitor, metoprolol Continue IV Lasix.
[2023-12-14] MEDS: ASPIRIN EC 81 MG TAB PO SCH (13:22)
[2023-12-14] MEDS: METOPROLOL TAR 25 MG TAB PO SCH (16:58)
--- NOTE | 2023-12-14 19:45 | RAD REPORT ---
EXAM DESCRIPTION: XR Chest, 1 View CLINICAL HISTORY: The patient is 68 years old and is Female; SOB TECHNIQUE: Frontal view of the chest. COMPARISON: No relevant prior studies available. FINDINGS: Lungs: Prominent interstitial markings which may indicate interstitial edema. Hazy bibasilar opacification. Pleural space: Unremarkable. No pneumothorax. Heart: Unremarkable. Mediastinum: Postsurgical changes in the mediastinum. Bones/joints: No acute findings. IMPRESSION: 1. Prominent interstitial markings which may indicate interstitial edema. 2. Hazy bibasilar opacification. Electronically signed by: Yandel Sarabia MD 12/14/2023 01:35 AM SPA CONCIERGE Due to temporary technical issues with the PACS/Fluency reporting system, reports are being signed by the in house radiologists without review as a courtesy to insure prompt reporting. The interpreting radiologist is fully responsible for the content of the report.
--- NOTE | 2023-12-14 19:46 | RAD REPORT ---
EXAM DESCRIPTION: CT Angiography Chest With Intravenous Contrast CLINICAL HISTORY: The patient is 68 years old and is Female; SOB TECHNIQUE: Axial computed tomographic angiography images of the chest with intravenous contrast. S agittal and coronal reformatted images were created and reviewed. This CT exam was performed using one or more of the following dose reduction techniques: automated exposure control, adjustment of t he mA and/or kV according to patient size, and/or use of iterative reconstruction technique. MIP re constructed images were created and reviewed. COMPARISON: No relevant prior studies available. FINDINGS: Pulmonary arteries: Unremarkable. No pulmonary embolism. Aorta: Scattered atherosclerotic vascular calcifications. No thoracic aortic aneurysm. Lungs: Diffuse groundglass opacification suggestive of pulmonary edema, right greater than left. Pleural space: Small bilateral pleural effusions. No pneumothorax. Heart: Unremarkable. No cardiomegaly. No significant pericardial effusion. No evidence of R V dysfunction. Mediastinum: Small hiatal hernia. Bones/joints: Median sternotomy wires. No acute fracture. No dislocation. Soft tissues: Unremarkable. Lymph nodes: Unremarkable. No enlarged lymph nodes. IMPRESSION: 1. No evidence of pulmonary embolism. 2. Small bilateral pleural effusions. 3. Diffuse groundglass opacification suggestive of pulmonary edema, right greater than left. Electronically signed by: Yandel Sarabia MD 12/14/2023 04:33 AM PROPELLER TESTER Due to temporary technical issues with the PACS/Fluency reporting system, reports are being signed by the in house radiologists without review as a courtesy to insure prompt reporting. The interpreting radiologist is fully responsible for the content of the report.
[2023-12-14] MEDS ORDERED: ATORVASTATIN 20 MG TAB PO SCH (21:00)
[2023-12-14] MEDS: ATORVASTATIN 20 MG TAB PO SCH (22:14)
[2023-12-14] MEDS: LORAZEPAM 0.5 MG TABLET PO PRN (23:40)
[2023-12-15] MEDS ORDERED: METOPROLOL TARTRATE 5 MG/5 ML INJ IV PRN (00:44)
[2023-12-15 01:26] LABS: Absolute Lymphocytes (CBC) 2.2 K/uL (0.7-4.9); Hematocrit 37.5 % (36.0-45.0); Lymphocytes % 20.9 % (15.3-44.8); MCV 85.5 fL (80-100); MPV 9.1 fL (7.6-11.3); Platelets 259 thou/uL (152-406); RBC Red Blood Cell Count 4.39 M/uL (3.86-4.86)
[2023-12-15 01:46] LABS: Albumin 3.5 g/dL (3.4-5.0); Bilirubin Total 0.2 mg/dL (0.2-1.0); Magnesium 2.3 mg/dL (1.6-2.4); Phosphorus 2.8 mg/dL (2.5-4.9); Potassium 3.6 mEq/L (3.5-5.1); Protein, Total 7.3 g/dL (6.4-8.2)
[2023-12-15] MEDS ORDERED: METOPROLOL TARTRATE 5 MG/5 ML INJ IV STA (04:08)
[2023-12-15] MEDS: METOPROLOL TAR 25 MG TAB PO SCH ×3 (06:16→18:13)
[2023-12-15] MEDS: INSULIN REGULAR (HUMAN) 100 UNIT/ML SQ SCH ×4 (07:30→20:22)
[2023-12-15] MEDS ORDERED: ASPIRIN EC 81 MG TAB PO ONE (08:15)
[2023-12-15] MEDS ORDERED: FUROSEMIDE 40 MG/4 ML VIAL ONE ×2 (08:16→18:03)
[2023-12-15] MEDS: ENOXAPARIN 80 MG/0.8 ML SQ SCH ×2 (08:17→20:22)
[2023-12-15] MEDS: ASPIRIN EC 81 MG TAB PO SCH (08:17)
[2023-12-15] MEDS: FUROSEMIDE 40 MG/4 ML VIAL IV SCH ×3 (08:17→18:09)
[2023-12-15] MEDS ORDERED: ATORVASTATIN 20 MG TAB PO SCH (09:00)
[2023-12-15] MEDS ORDERED: ALBUMIN HUMAN 25% 200 ML IV ONE (09:16)
[2023-12-15] MEDS ORDERED: INSULIN REGULAR (HUMAN) 100 UNIT/ML ONE (11:36)
--- NOTE | 2023-12-15 12:09 | P.PN ---
Subjective Date of Service: 12/15/23 Chief Complaint: Shortness of breath Troponin trended up to 3000 yesterday. Patient became briefly hypotensive overnight, reported intermittent atrial fibrillation. Otherwise patient respiratory status improved and was weaned off oxygen to room air which she is tolerating. She currently denies any chest pain. Physical Examination - Vital Signs Temperature: 97.1 F Blood Pressure: 105/89 Pulse: 86 Respirations: 15 Pulse Ox (%): 100 - Physical Exam General: Alert, In no apparent distress, Oriented x3 HEENT: Mucous membr. moist/pink, Sclerae nonicteric Neck: JVD not distended Respiratory: Clear to auscultation bilaterally, Normal air movement Cardiovascular: No edema, Regular rate/rhythm, Normal S1 S2 Gastrointestinal: Normal bowel sounds, Soft and benign, Non-distended Musculoskeletal: No swelling, No tenderness Integumentary: No rashes, No cyanosis Neurological: Normal speech, Normal strength at 5/5 x4 extr Assessment And Plan - Current Problems (Diagnosis) (1) Acute CHF Current Visit: Yes Status: Acute (2) Acute respiratory failure with hypoxia Current Visit: Yes Status: Acute (3) NSTEMI (non-ST elevated myocardial infarction) Current Visit: Yes Status: Acute (4) CAD (coronary artery disease) Current Visit: Yes Status: Acute (5) Diabetes mellitus type 2 in obese Current Visit: Yes Status: Acute - Plan Acute CHF/NSTEMI/Acute respiratory failure with hypoxia Respiratory failure improved. Patient weaned off BiPAP to oxygen by nasal c annula then to room air. Suspect systolic heart failure Troponin trended up to 3000 Continue full dose Lovenox Aspirin Cannot do beta-blockers due to brief hypotension. Echocardiogram ordered. Cardiology consulted. Patient given albumin infusion Hold Lasix due to hypotension. DM type II Insulin sliding scale for glucose management. DVT prophylaxis: Lovenox
[2023-12-15 15:37] VITALS: O2SAT 97
[2023-12-15] MEDS: ATORVASTATIN 20 MG TAB PO SCH (20:23)
[2023-12-15] MEDS: LORAZEPAM 0.5 MG TABLET PO PRN (21:58)
[2023-12-16 04:30] VITALS: TEMP 97.1
[2023-12-16 05:05] LABS: Absolute Lymphocytes (CBC) 2.3 K/uL (0.7-4.9); Hematocrit 37.8 % (36.0-45.0); Lymphocytes % 27.3 % (15.3-44.8); MCV 85.5 fL (80-100); Platelets 224 thou/uL (152-406); RBC Red Blood Cell Count 4.42 M/uL (3.86-4.86)
[2023-12-16 05:29] LABS: Albumin 3.9 g/dL (3.4-5.0); Bilirubin Total 0.3 mg/dL (0.2-1.0); Potassium 3.7 mEq/L (3.5-5.1); Protein, Total 7.4 g/dL (6.4-8.2)
[2023-12-16] MEDS: METOPROLOL TAR 25 MG TAB PO SCH (06:00)
[2023-12-16 06:48] VITALS: BP 165/55
--- NOTE | 2023-12-16 16:59 | EKG ---
Test Date: 2023-12-15 Test Time: 13:44:06 Sack Sewer: MEASUREMENT RESULTS: Intervals: Rate: 83 DC: 166 QRSD: 92 QT: 450 QTc: 528 [place]: P: 73 DC: 166 QRS: 0 T: 157 INTERPRETIVE STATEMENTS: Sinus rhythm with marked sinus arrhythmia ST & Marked T wave abnormality, consider anterolateral ischemia Prolonged QT Abnormal ECG Compared to ECG 12/15/2023 00:32:10 T-wave abnormality now present Possible ischemia now present Atrial premature complex(es) no longer present Left ventricular hypertrophy no longer present Early repolarization no longer present Electronically Signed On 12-16-23 16:55:50 CHIEF TECHNOLOGY OFFICER by Og Hazel
--- NOTE | 2023-12-16 16:59 | EKG ---
Test Date: 2023-12-15 Test Time: 13:42:38 Fiber Optics Engineer: MEASUREMENT RESULTS: Intervals: Rate: 78 HI: 176 QRSD: 88 QT: 436 QTc: 497 [place]: P: 84 HI: 176 QRS: 1 T: 166 INTERPRETIVE STATEMENTS: Sinus rhythm Inferior infarct, age undetermined ST & T wave abnormality, consider anterolateral ischemia Abnormal ECG Compared to ECG 12/15/2023 00:32:10 Myocardial infarct finding now present ST (T wave) deviation now present Possible ischemia now present Atrial premature complex(es) no longer present Left ventricular hypertrophy no longer present Early repolarization no longer present Prolonged QT interval no longer present Electronically Signed On 12-16-23 16:55:58 WAREHOUSE ENGINEER by Og Hazel
--- NOTE | 2023-12-16 17:00 | EKG ---
Test Date: 2023-12-15 Test Time: 05:30:55 Lean Consultant: GEE MEASUREMENT RESULTS: Intervals: Rate: 70 [place]: 172 QRSD: 92 QT: 502 QTc: 542 [place]: P: 82 IA: 172 QRS: -1 T: 167 INTERPRETIVE STATEMENTS: Normal sinus rhythm ST & Marked T wave abnormality, consider anterolateral ischemia Prolonged QT Abnormal ECG Compared to ECG 12/15/2023 00:32:10 T-wave abnormality now present Possible ischemia now present Atrial premature complex(es) no longer present Left ventricular hypertrophy no longer present Early repolarization no longer present Electronically Signed On 12-16-23 16:56:27 COMPRESSOR SERVICE TECHNICIAN by Og Hazel
--- NOTE | 2023-12-16 17:01 | EKG ---
Test Date: 2023-12-15 Test Time: 00:32:10 Cable Tv Installer: GEE MEASUREMENT RESULTS: Intervals: Rate: 83 [place]: 164 QRSD: 96 QT: 466 QTc: 547 [place]: P: 67 [place]: 164 QRS: -11 T: 166 INTERPRETIVE STATEMENTS: Sinus rhythm with premature atrial complexes Left ventricular hypertrophy with repolarization abnormality Prolonged QT Abnormal ECG Compared to ECG 12/14/2023 11:39:49 Atrial premature complex(es) now present Left ventricular hypertrophy now present Early repolarization now present Myocardial infarct finding no longer present ST (T wave) deviation no longer present Possible ischemia no longer present Electronically Signed On 12-16-23 16:56:34 PROPOSAL MANAGER WRITER by Og Hazel
--- NOTE | 2023-12-16 17:05 | EKG ---
Test Date: 2023-12-14 Test Time: 11:39:49 Medical Collections Specialist: CÉSAR MEASUREMENT RESULTS: Intervals: Rate: 84 [place]: 176 QRSD: 86 QT: 442 QTc: 522 [place]: P: 61 [place]: 176 QRS: -13 T: 150 INTERPRETIVE STATEMENTS: Normal sinus rhythm Inferior infarct, age undetermined ST & T wave abnormality, consider anterolateral ischemia Prolonged QT Abnormal ECG Compared to ECG 10/05/2021 23:30:50 ST (T wave) deviation now present Possible ischemia now present Prolonged QT interval now present Left-axis deviation no longer present Left ventricular hypertrophy no longer present Early repolarization no longer present Myocardial infarct finding still present Electronically Signed On 12-16-23 16:58:48 GLOBAL MARKETING COORDINATOR by Og Hazel
--- NOTE | 2023-12-16 20:28 | P.DS ---
Admission Date: 12/15/23 Discharge Date: 12/16/23 Disposition: TRANSFER TO [place] Discharge Condition: GOOD Reason for Admission: Shortness of breath - Problems (1) Acute CHF Status: Acute (2) Acute respiratory failure with hypoxia Status: Acute (3) NSTEMI (non-ST elevated myocardial infarction) Status: Acute (4) CAD (coronary artery disease) Status: Acute (5) Diabetes mellitus type 2 in obese Status: Acute Brief History of Present Illness: Pt is a 68 yo female with past medical history of Htn, CAD s/p CABG, Anxiety, DM and HLD who presents with shortness of breath. Pt is a female who can't speak [place]. this history is from her at bedside. She started having SOB around 1045pm last night while at home. The SOB progressively worsened to the extent that pt started having ribcage pain. This made her to call the EMS. Upon EMS arrival, pt had elevated BP and they advised her to come to the ER for evaluation. On admission, lab studies show WBC 12.4, Hgb 14.4, k 3.8, Cr 1.04, AST 43, ALT 59, Alk phos 91, troponin 256 and BNP 751. ABG shows pH 7.34, pCO2 43.7 and pO2 118. Pt was volume overload and ER physician placed BIPAP. Her reports that they recently came back from a city close to [place]. Patient was hospitalized for further management of new onset CHF. Hospital Course: Patient admitted to the medical floor and treated for CHF exacerbation with IV Lasix. Respiratory failure improved. Patient weaned off BiPAP to oxygen by nasal cannula then to room air. Systolic heart failure suspected Troponin trended up to 3000. Patient was diagnosied with NSTEMI started on full dose Lovenox, Aspirin Could not do beta-blockers due to brief hypotension. Echocardiogram ordered and cardiology consulted. Patient developed hypotension and became lethargic. Cardiogenic shock versus hypovolemic shock suspected Patient given albumin infusion and Lasix discontinued No cardiac cath service today, patient's clinical condition declined. Transfer initiated, patient accepted for transfer to [facility]. Vital Signs/Physical Exam: Temp Pulse Resp BP Pulse Ox 97.1 F 87 18 165/55 H 95 12/16/23 04:00 12/16/23 06:00 12/16/23 06:00 12/16/23 06:00 12/16/23 06:00 Laboratory Data at Discharge: WBC 8.50 thou/uL (4.3-10.9) 12/16/23 04:36 Hgb 12.9 g/dL (12.0-15.0) 12/16/23 04:36 Hct 37.8 % (36.0-45.0) 12/16/23 04:36 Plt Count 224 thou/uL (152-406) 12/16/23 04:36 PT 11.6 SECONDS (9.5-12.5) 12/13/23 00:04 INR 1.06 12/13/23 00:04 Sodium 141 mEq/L (136-145) 12/16/23 04:36 Potassium 3.7 mEq/L (3.5-5.1) 12/16/23 04:36 BUN 27 mg/dL (7-18) H 12/16/23 04:36 Creatinine 0.52 mg/dL (0.55-1.02) L 12/16/23 04:36 Glucose 90 mg/dL (74-106) 12/16/23 04:36 Phosphorus 2.8 mg/dL (2.5-4.9) 12/15/23 01:11 Magnesium 2.3 mg/dL (1.6-2.4) 12/15/23 01:11 Total Bilirubin 0.3 mg/dL (0.2-1.0) 12/16/23 04:36 AST 15 U/L (15-37) 12/16/23 04:36 ALT 33 U/L (13-56) 12/16/23 04:36 Alkaline Phosphatase 58 U/L (45-117) 12/16/23 04:36 Triglycerides 83 mg/dL (<150) 12/14/23 06:43 Cholesterol 201 mg/dL (<200) H 12/14/23 06:43 HDL Cholesterol 75 mg/dL (40-60) H 12/14/23 06:43 Cholesterol/HDL Ratio 2.68 12/14/23 06:43 Home Medications: Atorvastatin Calcium [Lipitor*] 20 mg PO DAILY 12/14/23 Clopidogrel Bisulfate [Plavix*] 75 mg PO DAILY 12/14/23 Metoprolol Tartrate 25 mg PO DAILY 12/14/23 Followup: Art Seth MD [Primary Care Provider] -
== END 2023-12-16 06:39 | disposition short-term general hospital (02) | DRG 280 ==
LOC: ER 23:35 → ERHOLD 12-14 01:24 → 2ND 12-14 02:47 → 3RD-ICU 12-15 06:39 → OBSVTOIN 12-15 17:02
PROVIDERS: ADMIT Hospitalist; ATTEND Internal Medicine
PROC: 5A09457 Assistance with Respiratory Ventilation, 24-96 Consecutive Hours, Continuous Positive Airway Pressure (ICD-10-PCS; principal; 2023-12-15)
DX: I11.0 Hypertensive heart disease with heart failure (principal); I21.4 Non-ST elevation (NSTEMI) myocardial infarction; I50.21 Acute systolic (congestive) heart failure; J96.01 Acute respiratory failure with hypoxia; R57.0 Cardiogenic shock; R57.1 Hypovolemic shock; E11.9 Type 2 diabetes mellitus without complications; E78.5 Hyperlipidemia, unspecified; F41.9 Anxiety disorder, unspecified; E66.9 Obesity, unspecified; I48.91 Unspecified atrial fibrillation; D72.829 Elevated white blood cell count, unspecified; I25.10 Atherosclerotic heart disease of native coronary artery without angina pectoris; R74.01 Elevation of levels of liver transaminase levels; Z95.5 Presence of coronary angioplasty implant and graft; Z95.1 Presence of aortocoronary bypass graft; Z11.52 Encounter for screening for COVID-19; Z79.02 Long term (current) use of antithrombotics/antiplatelets; Z68.26 Body mass index [BMI] 26.0-26.9, adult; Z79.899 Other long term (current) drug therapy; Z87.891 Personal history of nicotine dependence
CPT/HCPCS: 36415; 71045; 71275; 80048; 80053; 80061; 80076; 81003; 82805; 82947; 83735; 83880; 84100; 84484; 85025; 85610; 87635; 87804; 93005; 94660; 94760; 96372; 99285; G0378; J1644; J1815; J1940; J2371; J2405; J2930; J7060; J7614; Q9967

== ENCOUNTER 2024-08-05 08:32 | Emergency (ER) | payer OTHER ==
--- NOTE | 2024-08-05 09:05 | ER ---
Nurse's Notes [facility] Name: Dayana Brooks Age: 69 yrs Sex: Female : 1955 Arrival Date: 08/05/2024 Time: 08:32 Bed 6 Private MD: Diagnosis: Solitary cyst of left breast Presentation: 08/05 09:05 Chief complaint: Patient states: Pt states "lump" on her left breast for one week, dd2 drains clear liquid occasionally. Pt was prescribed Doxy the day prior. Coronavirus screen: At this time, the client does not indicate any symptoms associated with coronavirus-19. Ebola Screen: No symptoms or risks identified at this time. Initial Sepsis Screen: Does the patient meet any 2 criteria? No. Patient's initial sepsis screen is negative. Does the patient have a suspected source of infection? No. Patient's initial sepsis screen is negative. Risk Assessment: Do you want to hurt yourself or someone else? Patient reports no desire to harm self or others. Onset of symptoms is unknown. 09:05 Method Of Arrival: Ambulatory dd2 09:05 Acuity: ADRIANA 4 dd2 Triage Assessment: 09:05 General: Appears in no apparent distress. Behavior is calm, cooperative, appropriate dd2 for age. Pain: Complains of pain in anterior aspect of left upper chest Pain currently is 3 out of 10 on a pain scale. EENT: No deficits noted. No signs and/or symptoms were reported regarding the EENT system. Neuro: No deficits noted. Cardiovascular: No deficits noted. Respiratory: No deficits noted. GI: No deficits noted. No signs and/or symptoms were reported involving the gastrointestinal system. : No deficits noted. No signs and/or symptoms were reported regarding the genitourinary system. Derm: Wound noted anterior aspect of left upper chest Wound is raised abscess, no drainage noted Abscess located on anterior aspect of left upper chest is quarter sized. Musculoskeletal: No deficits noted. No signs and/or symptoms reported regarding the musculoskeletal system. Historical: - Allergies: 08:48 No Known Allergies; ll1 - Home Meds: 08:48 atorvastatin 20 mg Oral tablet [Active]; pravastatin Oral [Active]; Doxycycline Oral ll1 [Active]; Metoprolol Tartrate Oral [Active]; clopidogrel oral [Active]; Aspirin Oral [Active]; - PMHx: 08:48 Diabetes - NIDDM; Hyperlipidemia; Hypertension; ll1 - PSHx: 08:48 cardiac stents (en); Coronary artery bypass graft; ll1 - Immunization history:: Adult Immunizations up to date. - Infectious Disease History:: Denies. - Social history:: Smoking status: Patient denies any tobacco usage or history of. Screenin:09 [facility] ED Fall Risk Assessment (Adult) History of falling in the last 3 months, dd2 including since admission No falls in past 3 months (0 pts) Confusion or Disorientation No (0 pts) Intoxicated or Sedated No (0 pts) Impaired Gait No (0 pts) Mobility Assist Device Used No (0 pt) Altered Elimination No (0 pt) Score/Fall Risk Level 0 - 2 = Low Risk Oriented to surroundings, Maintained a safe environment, Hourly rounding (assess needs \\T\\ fall precautionary measures) done. Abuse screen: Denies threats or abuse. Nutritional screening: No deficits noted. Tuberculosis screening: No symptoms or risk factors identified. Assessment: 09:09 Reassessment: see triage note for full assessment. dd2 Vital Signs: 09:05 BP 151 / 66; Pulse 82; Resp 16; Temp 98.2; Pulse Ox 98% ; Weight 74.84 kg; dd2 09:09 BP 148 / 68; Pulse 81; Resp 16; Pulse Ox 100% ; dd2 ED Course: 08:35 Patient arrived in ED. im 08:35 Riki Scott DO is Attending Physician. ms3 08:40 ELIO NICK, DANIELLE is Primary Nurse. dd2 08:47 Arm band placed on Patient placed in an exam room, on a stretcher. ll1 09:03 Elio Milan MD is Referral Physician. ms3 09:07 Triage completed. dd2 09:09 Patient has correct armband on for positive identification. Bed in low position. Call dd2 light in reach. Side rails up X 1. Provided Education on: call light. 09:09 No provider procedures requiring assistance completed. Patient did not have IV access dd2 during this emergency room visit. Administered Medications: No medications were administered Medication: 09:09 VIS not applicable for this client. dd2 Outcome: 09:04 Discharge ordered by . ms3 09:20 Discharged to home ambulatory, dd2 09:20 Condition: stable 09:20 Discharge instructions given to patient, Instructed on discharge instructions, follow up and referral plans. Demonstrated understanding of instructions, follow-up care, 09:20 Patient left the ED. dd2 Signatures: Mino Begum RN RN ll1 Riki Scott DO DO ms3 Yany Neumann DIANA, RN RN dd2
[2024-08-05 09:25] VITALS: TEMP 98.2
[2024-08-05 09:26] VITALS: BP 148/68; O2SAT 100
--- NOTE | 2024-08-06 09:20 | EDPHYS ---
Physician Documentation [facility] Name: Dayana Brooks Age: 69 yrs Sex: Female : 1955 Arrival Date: 08/05/2024 Time: 08:32 Bed 6 Private MD: ED Physician Riki Scott HPI: 08/05 10:40 This 69 yrs old Female presents to ER via Ambulatory with complaints of Breast ms3 Lump. 10:40 69-year-old female with past medical history of diabetes, hyperlipidemia, hypertension ms3 presents to the emergency department for left breast lump. Patient states she was seen at [facility] yesterday and started on doxycycline. Patient states she noticed the lump 5 years ago after having heart surgery. Over the last week patient states the lump had discharge and became painful.. Historical: - Allergies: 08:48 No Known Allergies; ll1 - Home Meds: 08:48 atorvastatin 20 mg Oral tablet [Active]; pravastatin Oral [Active]; Doxycycline Oral ll1 [Active]; Metoprolol Tartrate Oral [Active]; clopidogrel oral [Active]; Aspirin Oral [Active]; - PMHx: 08:48 Diabetes - NIDDM; Hyperlipidemia; Hypertension; ll1 - PSHx: 08:48 cardiac stents (en); Coronary artery bypass graft; ll1 - Immunization history:: Adult Immunizations up to date. - Infectious Disease History:: Denies. - Social history:: Smoking status: Patient denies any tobacco usage or history of. ROS: 10:40 Constitutional: Negative for fever, and chills. Cardiovascular: Negative for chest ms3 pain, and palpitations. Respiratory: Negative for shortness of breath, cough, wheezing, and pleuritic chest pain, Abdomen/GI: Negative for abdominal pain, nausea, vomiting, diarrhea, and constipation, 10:40 Skin: Positive for swelling, of the Medial left breast, Exam: 10:40 Constitutional: This is a well developed, well nourished patient who is awake, alert, ms3 and in no acute distress. Neck: Trachea midline, no cervical lymphadenopathy. Supple, full range of motion without nuchal rigidity, or vertebral point tenderness. No Meningismus. Cardiovascular: Regular rate and rhythm with a normal S1 and S2. No gallops, murmurs, or rubs. Normal PMI, no JVD. No pulse deficits. Respiratory: Lungs have equal breath sounds bilaterally, clear to auscultation and percussion. No rales, rhonchi or wheezes noted. No increased work of breathing, no retractions or nasal flaring. Abdomen/GI: Soft, non-tender, with normal bowel sounds. No distension or tympany. No guarding or rebound. No evidence of tenderness throughout. 10:40 Chest/axilla: Inspection: Breasts: swelling, that is mild of the left breast, 3 cm area of swelling left breast without erythema, Vital Signs: 09:05 BP 151 / 66; Pulse 82; Resp 16; Temp 98.2; Pulse Ox 98% ; Weight 74.84 kg; dd2 09:09 BP 148 / 68; Pulse 81; Resp 16; Pulse Ox 100% ; dd2 MDM: 09:03 Patient medically screened. ms3 10:40 Differential Diagnosis Abscess versus cellulitis versus cyst. Data reviewed: vital ms3 signs, nurses notes, and as a result, I will discharge patient. Care significantly affected by the following chronic conditions: Diabetes, Hypertension. Counseling: I had a detailed discussion with the patient and/or guardian regarding the historical points, exam findings, and any diagnostic results supporting the discharge/admit diagnosis, the need for outpatient follow up, to return to the emergency department if symptoms worsen or persist or if there are any questions or concerns that arise at home. Special discussion: I discussed with the patient/guardian in detail that at this point there is no indication for admission to the hospital. It is understood, however, that if the symptoms persist or worsen the patient needs to return immediately for re-evaluation. ED course: Discussed patient's current antibiotic regimen of doxycycline with her. Patient to continue antibiotic. Patient to follow-up with Dr. Milan in 2 to 3 days. Patient understands and agrees with plan. All questions were answered. Return precautions discussed include fevers, worsening symptoms, or any other concerns.. Administered Medications: No medications were administered Disposition: 10:54 Chart complete. ms3 Disposition Summary: 08/05/24 09:04 Discharge Ordered Notes: Location: Home ms3 Condition: Stable ms3 Diagnosis - Solitary cyst of left breast ms3 Followup: ms3 - With: Elio Milan MD - When: 2 - 3 days - Reason: Recheck today's complaints Discharge Instructions: - Discharge Summary Sheet ms3 - Breast Cyst ms3 Forms: - Medication Reconciliation Form ms3 - Antibiotic Education ms3 - Prescription Opioid Use ms3 - Patient Portal Instructions ms3 - Leadership Thank You Letter ms3 Signatures: Mino Begum, RN RN ll1 Riki Scott DO DO ms3 ELIO NICK RN RN dd2
== END 2024-08-05 09:20 | disposition home or self-care (01) ==
LOC: ER 08:32
DX: N60.02 Solitary cyst of left breast (principal)
CPT/HCPCS: 99282